=== PATIENT | female | born 1960 | race Asian ===

== ENCOUNTER 2020-10-13 19:01 | Emergency (ER) | payer BC, OTHER ==
[~2020-10-13] VITALS: Ht 167.6 cm; Wt 68.0 kg
[2020-10-13 19:53] VITALS: BP 148/88
[2020-10-13] MEDS ORDERED: ONDANSETRON ODT 4 MG TAB PO ONE (20:45)
[2020-10-13] MEDS ORDERED: ACETAMINOPHEN/CODEINE#3 (300/30mg) TAB PO ONE (20:45)
== END 2020-10-13 21:29 | disposition home or self-care (01) ==
LOC: ER 19:01
DX: S92.152A Displaced avulsion fracture (chip fracture) of left talus, initial encounter for closed fracture (principal); F17.210 Nicotine dependence, cigarettes, uncomplicated; X58.XXXA Exposure to other specified factors, initial encounter; Y93.89 Activity, other specified; Y92.89 Other specified places as the place of occurrence of the external cause; Y99.8 Other external cause status
CPT/HCPCS: 29515; 73610; 99283; Q0162